=== PATIENT | male | born 1955 | race Hispanic/Latino ===

== ENCOUNTER 2021-06-22 22:21 | Emergency (ER) | payer SELFPAY ==
--- NOTE | 2021-06-22 22:36 | EDPHYS ---
Physician Documentation [facility] [place] Name: Uri Saab Age: 65 yrs Sex: Male : 1955 Arrival Date: 06/22/2021 Time: 22:22 Bed 3 Private MD: ED Physician Zbigniew Mendez HPI: 06/22 22:25 This 65 yrs old Male presents to ER via Unassigned with complaints of cpr in [facility] [place] end stage liver disease. 22:25 Preceding the arrest, the patient was found down by family. The arrest occurred at [facility] [place] home. Pre-hospital course: ACLS details: Initial rhythm was asystole. The presenting rhythm is asystole. Airway: Ambu assist ventilation, Medications given by EMS prior to arrival - none, Defibrillation was not performed, an external pacer was not used. The patient has not experienced similar symptoms in the past. - Family history:: not pertinent. ROS: 22:25 Unable to obtain ROS due to obtunded state. john Exam: 22:25 Constitutional: The patient appears john 22:25 Cardiovascular: Rate: actual rate is 0 bpm, Rhythm: asystole, Pulses: not palpable. 22:25 Respiratory: Respiratory rate: none 22:29 Eyes: Sclera: icterus. john 22:29 Abdomen/GI: Inspection: distension, Bowel sounds: absent, Palpation: organomegaly is appreciated, hepatomegaly. [place] Coma Score: 22:37 Eye Response: none(1). Verbal Response: none(1). Motor Response: none(1). Total: 3. df1 MDM: 22:23 Patient medically screened. john 22:29 Data reviewed: vital signs, nurses notes. [facility] 22:30 Differential diagnosis: arrythmia, cardiac arrest, respiratory arrest. Data [facility] interpreted: monitoring specialist: rate is 0 beats/min, rhythm is asystole, Pulse oximetry: on room air is 0 %. Counseling: I had a detailed discussion with the patient and/or guardian regarding:. Administered Medications: No medications were administered Point of Care Testing: Blood Glucose: 22:37 Blood Glucose: Low (<40 mg/dL); df1 Ranges: Critical Glucose Levels:Adult <50 mg/dl or >400 mg/dl <40 mg/dl or >180 mg/dl Disposition Summary: 06/22/21 22:35 Patient Location: Home john Pronouncing Physician: Zbigniew Mendez cha Time of : 22:23 06/22/2021 john Diagnosis - Unspecified cirrhosis of liver john - Malignant neoplasm of liver, not specified as primary or secondary john - Cardiac arrest due to other underlying condition john - Acute respiratory failure john Signatures: Dispatcher [employer] EDZbigniew Rees MD MD cha
--- NOTE | 2021-06-22 22:36 | ER ---
Nurse's Notes [facility] Name: Uri Saab Age: 65 yrs Sex: Male : 1955 Arrival Date: 06/22/2021 Time: 22:22 Bed 3 Private MD: Diagnosis: Unspecified cirrhosis of liver;Malignant neoplasm of liver, not specified as primary or secondary;Cardiac arrest due to other underlying condition;Acute respiratory failure Presentation: 06/22 22:30 Chief complaint: EMS states: EMS upon arrival stated asystole upon arrival. Care prior df1 to arrival: Assisted ventilation, Oral airway placed, CPR via thumper Placed on backboard. Medication(s) given: 1mg Epinephrine given x4 CLINIC COORDINATOR. Compressions began prior to arrival. 22:30 Method Of Arrival: EMS: [facility] df1 22:30 Acuity: SHEELA 1 df1 22:38 Note Pt arrived via [facility] at 2220 with CPR in progress ventilating with BVM, df1 Jonathan device, 15G I/O to Left Tibila. EMS upable to intubate prior to arrival. EMS states asystole upon arrivel. 1mg Epinephrine x4 given with CPR CLINIC COORDINATOR. Glucose "low" upon arrival. 1 Amp D50% push x1 at 2221. CPR continues. Pulse check at 2223. Asystole on [employer] and bedside monitor. TOD at 2223. - Family history:: not pertinent. Assessment: 22:31 Reassessment: called [facility] and spoke with Colin, pt will not be a donor candidate em due to liver CA, case # [id number]. 22:33 CPR assessment: unresponsive, pupils fixed \\T\\ dilated, Ambu ventilation, pulses absent df1 w/ compressions. Cardiac rhythm is asystole. General: Appears unkempt, malnourished. Neuro: Respiratory: 23:44 Reassessment: PD at bedside. ea 23:48 Reassessment: Judge Aleman at bedside. ea 23:55 Reassessment: PD and family at bedside awaiting for undertaker. claudy 06/23 00:11 Reassessment: Undertaker at bedside pt left ED via undertakers stretcher. ea [place] Coma Score: 06/22 22:37 Eye Response: none(1). Verbal Response: none(1). Motor Response: none(1). Total: 3. df1 ED Course: 22:22 Patient arrived in ED. mw2 22:23 Zbigniew Mendez MD is Attending Physician. john 22:28 Narcisa Briones, RN is Primary Nurse. claudy 22:33 Triage completed. df1 22:33 Police called [place] [employer] to have an officer call out the dog show judge information developer for the mw2 patient. 22:34 Zbigniew Mendez MD is Pronouncing Provider. john Administered Medications: No medications were administered Point of Care Testing: Blood Glucose: 22:37 Blood Glucose: Low (<40 mg/dL); df1 Ranges: Outcome: 06/23 00:18 Patient left the ED. ea Signatures: Zbigniew Mendez MD MD cha Munoz, Edgar, RN RN Narcisa Serra, RN RN Pio Lopez mw2 NikolaishabbirNuris df1
[2021-06-23] MEDS ORDERED: D50W 25 GM/50 ML SYRINGE IV ONE (02:11)
== END 2021-06-23 00:18 | disposition expired ==
LOC: ER 22:21
DX: N18.6 End stage renal disease (principal); I46.8 Cardiac arrest due to other underlying condition; J96.00 Acute respiratory failure, unspecified whether with hypoxia or hypercapnia; C22.9 Malignant neoplasm of liver, not specified as primary or secondary; K74.60 Unspecified cirrhosis of liver
CPT/HCPCS: 92950; 99285